=== PATIENT | male | born 1965 ===

== ENCOUNTER 2019-05-02 18:55 | Outpatient (REF) | payer BC, SELFPAY ==
[2019-05-04 11:44] LABS: PSA, Screening 1.1 ng/mL (0.0-3.5)
== END 2019-05-02 19:15 ==
LOC: NCHCN 18:55
PROVIDERS: Visit Provider Internal Medicine
DX: Z00.00 Encounter for general adult medical examination without abnormal findings (principal); N40.0 Benign prostatic hyperplasia without lower urinary tract symptoms; Z12.5 Encounter for screening for malignant neoplasm of prostate
CPT/HCPCS: 84153

== ENCOUNTER 2020-08-11 15:53 | Outpatient (REF) | payer BC, SELFPAY ==
[2020-08-11 15:32] LABS: Abs Immature Grans 0.04 10^3/uL (0.0-0.06); Absolute Basophil Count 0.07 10^3/uL (0.0-0.2); Absolute Eosinophil Count 0.27 10^3/uL (0.0-0.7); Absolute Lymphocyte Count 2.44 10^3/uL (1.2-3.4); Absolute Monocyte Count 0.81 10^3/uL (0.1-0.8); Absolute Neutrophil Count 4.75 10^3/uL (1.2-6.7); Basophils % 0.8; Eosinophils % 3.2; HGB 17.4 g/dL (13.5-17.5); Immature Grans % 0.5; Lymphocytes % 29.1; MCH 29.2 pg (27.0-33.0); MCHC 34.1 % (32.0-36.0); MCV 85.7 fL (80-95); MPV 10.5 fL (8.0-11.0); Monocytes % 9.7; Neutrophils % 56.7; Nucleated RBC 0 %; Platelet Count 248 10^3/uL (130-400); RBC 5.95 10^6/uL (4.36-5.78); RDW 11.9 % (11.8-14.1); RDW-SD 37.2 fL; WBC 8.38 10^3/uL (4.4-10.8)
[2020-08-11 16:03] LABS: ALT 49 U/L (16-63); AST 22 U/L (15-37); Alkaline Phosphatase 62 U/L (46-116); Anion Gap 10.3 mmol/L (3-11); BUN 14 mg/dL (7-18); Bilirubin, Total 0.6 mg/dL (0.2-1.0); CO2 26.7 mmol/L (21.0-32.0); CREATININE 1.1 mg/dL (0.70-1.30); Calcium 9.2 mg/dL (8.5-10.1); Chloride 104 mmol/L (98-107); Glucose 91 mg/dL (74-106); Lipase 151 U/L (73-393); Potassium 4.4 mmol/L (3.5-5.1); Sodium 141 mmol/L (136-145); Total Protein 6.9 g/dL (6.4-8.2)
== END 2020-08-11 15:54 | disposition home or self-care (01) ==
LOC: NCHCN 15:53
PROVIDERS: PCP Internal Medicine; Visit Provider Internal Medicine
DX: R10.30 Lower abdominal pain, unspecified (principal)
CPT/HCPCS: 80053; 83690; 85025

== ENCOUNTER 2022-10-27 17:44 | Outpatient (REF) | payer BC, SELFPAY ==
[2022-10-27 21:05] LABS: Abs Immature Grans 0.02 10^3/uL (0.0-0.06); Absolute Basophil Count 0.07 10^3/uL (0.0-0.2); Absolute Eosinophil Count 0.27 10^3/uL (0.0-0.7); Absolute Lymphocyte Count 3.36 10^3/uL (1.2-3.4); Absolute Monocyte Count 0.87 10^3/uL (0.1-0.8); Absolute Neutrophil Count 5.35 10^3/uL (1.2-6.7); Basophils % 0.7; Eosinophils % 2.7; HCT 49.6 % (40.0-50.0); HGB 17.2 g/dL (13.5-17.5); Immature Grans % 0.2; Lymphocytes % 33.8; MCH 29.8 pg (27.0-33.0); MCHC 34.7 % (32.0-36.0); MCV 86 fL (80-95); MPV 10.6 fL (8.0-11.0); Monocytes % 8.8; Neutrophils % 53.8; Platelet Count 266 10^3/uL (130-400); RBC 5.78 10^6/uL (4.36-5.78); RDW 12.3 % (11.8-14.1); RDW-SD 38.2 fL; WBC 9.94 10^3/uL (4.4-10.8)
[2022-10-27 21:44] LABS: Calculated LDL 129 mg/dL (<100); Cholesterol 194 mg/dL (<200); HDL Cholesterol 45 mg/dL (40-60); Triglyceride 102 mg/dL (<150)
[2022-10-28 19:10] LABS: PSA, Screening 1.9 ng/mL (<=3.5)
== END 2022-10-27 17:45 | disposition home or self-care (01) ==
LOC: NCHCN 17:44
PROVIDERS: PCP Internal Medicine; Visit Provider Internal Medicine
DX: Z00.00 Encounter for general adult medical examination without abnormal findings (principal); D75.1 Secondary polycythemia; Z13.220 Encounter for screening for lipoid disorders; Z12.5 Encounter for screening for malignant neoplasm of prostate
CPT/HCPCS: 80061; 84153; 85025

== ENCOUNTER 2023-09-23 16:11 | Outpatient (REF) | payer BC, SELFPAY ==
[2023-09-23 18:47] LABS: ESR 2 mm/hr (0-20)
[2023-09-23 18:48] LABS: HGB 16.9 g/dL (13.5-17.5); MCH 29.3 pg (27.0-33.0); MCHC 34.5 % (32.0-36.0); MCV 85 fL (80-95); MPV 10.1 fL (8.0-11.0); Platelet Count 271 10^3/uL (130-400); RBC 5.76 10^6/uL (4.36-5.78); RDW 11.9 % (11.8-14.1); RDW-SD 36.7 fL; WBC 8.85 10^3/uL (4.4-10.8)
[2023-09-23 18:56] LABS: ALT 35 U/L (16-63); AST 23 U/L (15-37); Albumin 4.1 g/dL (3.4-5.0); Alkaline Phosphatase 55 U/L (46-116); Anion Gap 9.8 mmol/L (3-11); BUN 14 mg/dL (7-18); Bilirubin, Total 0.5 mg/dL (0.2-1.0); CO2 26.2 mmol/L (21.0-32.0); CREATININE 1.1 mg/dL (0.70-1.30); Calcium 8.8 mg/dL (8.5-10.1); Chloride 107 mmol/L (98-107); Estimated GFR 77.81 (mL/min/1.73m2); Glucose 87 mg/dL (74-106); Potassium 4.2 mmol/L (3.5-5.1); Sodium 143 mmol/L (136-145)
[2023-09-23 18:58] LABS: C-Reactive Protein < 0.50 mg/dL (<or=0.5)
== END 2023-09-23 16:12 | disposition home or self-care (01) ==
LOC: NCHCN 16:11
PROVIDERS: PCP Internal Medicine; Visit Provider Internal Medicine
DX: M54.50 Low back pain, unspecified (principal); R10.9 Unspecified abdominal pain
CPT/HCPCS: 80053; 85027; 85652; 86140

== ENCOUNTER 2024-05-17 21:15 | Outpatient (REF) | payer BC, SELFPAY ==
[2024-05-17 20:30] LABS: Abs Immature Grans 0.02 10^3/uL (0.0-0.06); Absolute Basophil Count 0.08 10^3/uL (0.0-0.2); Absolute Eosinophil Count 0.25 10^3/uL (0.0-0.7); Absolute Lymphocyte Count 2.08 10^3/uL (1.2-3.4); Absolute Monocyte Count 0.52 10^3/uL (0.1-0.8); Absolute Neutrophil Count 3.04 10^3/uL (1.2-6.7); Basophils % 1.3 %; Eosinophils % 4.2 %; HCT 51.8 % (40.0-50.0); HGB 17.3 g/dL (13.5-17.5); Immature Grans % 0.3 %; Lymphocytes % 34.7 %; MCH 29.3 pg (27.0-33.0); MCHC 33.4 % (32.0-36.0); MCV 88 fL (80-95); MPV 10.2 fL (8.0-11.0); Monocytes % 8.7 %; Neutrophils % 50.8 %; Platelet Count 244 10^3/uL (130-400); RBC 5.91 10^6/uL (4.36-5.78); RDW 11.9 % (11.8-14.1); RDW-SD 38.5 fL; WBC 5.99 10^3/uL (4.4-10.8)
== END 2024-05-17 21:16 | disposition home or self-care (01) ==
LOC: NCHCN 21:15
PROVIDERS: PCP Internal Medicine; Visit Provider Nurse Practitioner Family
DX: R06.09 Other forms of dyspnea (principal)
CPT/HCPCS: 85025; 85379

== ENCOUNTER 2024-05-22 16:58 | Outpatient (REF) | payer BC, SELFPAY ==
[2024-05-22 19:49] LABS: TSH 2.23 uIU/mL (0.36-3.74)
[2024-05-23 11:09] LABS: ALT 33 U/L (16-63); AST 19 U/L (15-37); Albumin 4.1 g/dL (3.4-5.0); Alkaline Phosphatase 59 U/L (46-116); Anion Gap 10.6 mmol/L (3-11); BUN 18 mg/dL (7-18); CO2 26.4 mmol/L (21.0-32.0); CREATININE 1.1 mg/dL (0.70-1.30); Calcium 9.4 mg/dL (8.5-10.1); Chloride 107 mmol/L (98-107); Estimated GFR 77.33 (mL/min/1.73m2); Glucose 82 mg/dL (74-106); Potassium 4.3 mmol/L (3.5-5.1); Sodium 144 mmol/L (136-145)
[2024-05-23 11:10] LABS: C-Reactive Protein < 0.50 mg/dL (<or=0.5)
== END 2024-05-22 16:59 | disposition home or self-care (01) ==
LOC: NCHCN 16:58
PROVIDERS: PCP Internal Medicine; Visit Provider Nurse Practitioner Family
DX: R06.09 Other forms of dyspnea (principal)
CPT/HCPCS: 80053; 84443; 86140